=== PATIENT | male | born 1960 | race Caucasian/White ===

== ENCOUNTER 2020-10-28 10:22 | Inpatient (IN) | payer OTHER ==
[2020-10-28 10:33] VITALS: BMI 25.4
[2020-10-28] MEDS ORDERED: SODIUM CHLORIDE 0.9% 500 ML INFUS.BAG IV ONE (11:09)
[2020-10-28 11:51] LABS: CHLORIDE 105 mmol/L (98-107); POTASSIUM 4.2 mmol/L (3.5-5.1); SODIUM 137 mmol/L (136-145)
[2020-10-28 11:53] LABS: ALBUMIN 3.8 g/dl (3.4-5.0); ANION GAP 6 MMOL/L (8-16); BLOOD UREA NITROGEN 13.7 mg/dL (7-18); CALCIUM 9.5 mg/dL (8.5-10.1); CO2 26 mmol/L (21-32); GLUCOSE,RANDOM 110 mg/dL (74-106); MAGNESIUM 2.2 mg/dL (1.8-2.4)
[2020-10-28 11:56] LABS: PHOSPHOROUS 2.2 mg/dL (2.5-4.9); SGOT/AST 28 U/L (15-37); SGPT/ALT 32 U/L (13-61)
[2020-10-28 11:57] LABS: CREATININE 0.8 mg/dL (0.55-1.3)
[2020-10-28 11:58] LABS: TOT PROT 7.3 g/dl (6.4-8.2)
[2020-10-28 11:59] LABS: ALK PHOS 79 U/L (45-117)
[2020-10-28 12:02] LABS: BASO % 2.8 % (0-2.0); EOS % 2.2 % (0-4.5); HEMATOCRIT 43.8 % (35.4-49); HEMOGLOBIN 15.4 GM/dL (11.7-16.9); MCH 31.1 pg (25.7-33.7); MCHC 35.2 g/dl (32.0-35.9); MEAN CELL VOLUME 88.3 fl (80-96); MEAN PLT VOLUME 8.4 fl (7.5-11.1); MONO % 7.9 % (3.8-10.2); NEUT % 68.1 % (42.8-82.8); PLATELET COUNT 234 K/MM3 (134-434); RBC 4.95 M/mm3 (4.00-5.60); RDW 13.6 % (11.9-15.9); WHITE BLOOD COUNT 5.4 K/mm3 (4.0-10.0)
[2020-10-28 18:52] LABS: CHOLESTEROL 247 mg/dL (50-200); TRIGLYCERIDES 199 mg/dL (0-150)
[2020-10-28 18:53] LABS: LDL CHOLESTEROL (ONLY SJRH) 158 mg/dL (5-100)
[2020-10-28 18:55] LABS: HDL CHOLESTEROL 57 mg/dL (40-60)
[2020-10-28 18:56] LABS: N-TERMINAL BNP 40.5 pg/ml (5-125)
[2020-10-28] MEDS ORDERED: ATORVASTATIN CA 20 MG TABLET (FP) PO ONE (21:30)
[2020-10-28] MEDS: HEPARIN NA (PORCINE) 5,000 UNITS/ML 1ML VIAL SQ SCH (21:39)
[2020-10-29 07:52] LABS: BASO % 0.5 % (0-2.0); EOS % 3.4 % (0-4.5); HEMATOCRIT 42.9 % (35.4-49); HEMOGLOBIN 14.7 GM/dL (11.7-16.9); LYMPH % 26.9 % (8-40); MCH 30.8 pg (25.7-33.7); MCHC 34.2 g/dl (32.0-35.9); MEAN PLT VOLUME 8.4 fl (7.5-11.1); MONO % 9.9 % (3.8-10.2); NEUT % 59.3 % (42.8-82.8); PLATELET COUNT 226 K/MM3 (134-434); RBC 4.76 M/mm3 (4.00-5.60); RDW 13.1 % (11.9-15.9); WHITE BLOOD COUNT 5.7 K/mm3 (4.0-10.0)
[2020-10-29 08:04] LABS: CHLORIDE 106 mmol/L (98-107); POTASSIUM 3.9 mmol/L (3.5-5.1); SODIUM 139 mmol/L (136-145)
[2020-10-29 08:15] LABS: ALBUMIN 3.5 g/dl (3.4-5.0); ALK PHOS 74 U/L (45-117); CALCIUM 9.2 mg/dL (8.5-10.1)
[2020-10-29 08:16] LABS: ANION GAP 5 MMOL/L (8-16); BLOOD UREA NITROGEN 15.8 mg/dL (7-18); CO2 28 mmol/L (21-32); GLUCOSE,RANDOM 90 mg/dL (74-106); HDL CHOLESTEROL 49 mg/dL (40-60); SGPT/ALT 26 U/L (13-61)
[2020-10-29 08:17] LABS: LDL CHOLESTEROL (ONLY SJRH) 153 mg/dL (5-100); SGOT/AST 16 U/L (15-37); TOT PROT 6.6 g/dl (6.4-8.2)
[2020-10-29 08:18] LABS: MAGNESIUM 2.4 mg/dL (1.8-2.4)
[2020-10-29 08:19] LABS: CHOLESTEROL 232 mg/dL (50-200); CREATININE 0.9 mg/dL (0.55-1.3); TRIGLYCERIDES 156 mg/dL (0-150)
[2020-10-29] MEDS: HEPARIN NA (PORCINE) 5,000 UNITS/ML 1ML VIAL SQ SCH ×2 (10:06→21:30)
[2020-10-29] MEDS ORDERED: amLODIPine BESYLATE 5 MG TABLET (FP) PO ONE (15:01)
[2020-10-29] MEDS ORDERED: ATORVASTATIN CA 10 MG TABLET (FP) PO SCH (22:00)
[2020-10-29] MEDS ORDERED: ROSUVASTATIN CA 5 MG TABLET (FP) PO SCH (22:00)
[2020-10-30 07:56] LABS: HEMATOCRIT 44.6 % (35.4-49); HEMOGLOBIN 15.5 GM/dL (11.7-16.9); MCH 30.8 pg (25.7-33.7); MCHC 34.8 g/dl (32.0-35.9); MEAN CELL VOLUME 88.6 fl (80-96); MEAN PLT VOLUME 8.2 fl (7.5-11.1); PLATELET COUNT 216 K/MM3 (134-434); RBC 5.03 M/mm3 (4.00-5.60); RDW 13.2 % (11.9-15.9); WHITE BLOOD COUNT 4.5 K/mm3 (4.0-10.0)
[2020-10-30 08:15] LABS: POTASSIUM 4.1 mmol/L (3.5-5.1)
[2020-10-30 08:25] LABS: ALBUMIN 3.4 g/dl (3.4-5.0)
[2020-10-30 08:26] LABS: BLOOD UREA NITROGEN 16.2 mg/dL (7-18)
[2020-10-30 08:27] LABS: BILIRUBIN,TOTAL 0.9 mg/dL (0.2-1); TOT PROT 6.7 g/dl (6.4-8.2)
[2020-10-30 08:28] LABS: CREATININE 0.9 mg/dL (0.55-1.3)
[2020-10-30] MEDS ORDERED: ATORVASTATIN CA 20 MG TABLET (FP) PO SCH (08:36)
[2020-10-30 09:14] VITALS: TEMP 98.1
[2020-10-30] MEDS ORDERED: ESCITALOPRAM OXALATE 10 MG TABLET PO SCH (10:00)
[2020-10-30] MEDS: HEPARIN NA (PORCINE) 5,000 UNITS/ML 1ML VIAL SQ SCH (12:43)
[2020-10-30 17:06] VITALS: BP 131/73; PULSE 78
== END 2020-10-30 17:07 | disposition home or self-care (01) | DRG 756 ==
LOC: JER 10:22 → JERBED 13:35 → OBSVTOIN 14:22 → J4W 17:22
PROVIDERS: ADMIT Family Medicine; ATTEND Family Medicine
DX: F41.8 Other specified anxiety disorders (principal); I10 Essential (primary) hypertension; E78.5 Hyperlipidemia, unspecified; R00.2 Palpitations; R94.31 Abnormal electrocardiogram [ECG] [EKG]; R06.02 Shortness of breath
CPT/HCPCS: 36415; 71045-TC-FY; 78452-TC; 80053; 80061; 82550; 82553; 83036; 83721; 83735; 83880; 84100; 84443; 84484; 85025; 85027; 93005; 93010; 93017; 99285-25; A9502; C9803; G0378; J1644; U0003

== ENCOUNTER 2021-10-31 10:47 | Emergency (ER) | payer OTHER ==
[2021-10-31 10:57] VITALS: BMI 25.7
[2021-10-31 12:31] LABS: EOS % 2.2 % (0-4.5); HEMATOCRIT 43.6 % (35.4-49); HEMOGLOBIN 15.1 GM/dL (11.7-16.9); LYMPH % 32.4 % (8-40); MCH 30.6 pg (25.7-33.7); MCHC 34.8 g/dl (32.0-35.9); MEAN CELL VOLUME 88.1 fl (80-96); MEAN PLT VOLUME 7.3 fl (7.5-11.1); MONO % 9.6 % (3.8-10.2); NEUT % 54.8 % (42.8-82.8); PLATELET COUNT 224 10^3/uL (134-434); RBC 4.95 M/mm3 (4.00-5.60); RDW 13.1 % (11.9-15.9); WHITE BLOOD COUNT 4.3 K/mm3 (4.0-10.0)
[2021-10-31 12:55] LABS: CHLORIDE 105 mmol/L (98-107); SODIUM 140 mmol/L (136-145)
[2021-10-31 12:57] LABS: CALCIUM 9.3 mg/dL (8.5-10.1)
[2021-10-31 12:58] LABS: ALBUMIN 3.8 g/dl (3.4-5.0); ANION GAP 6 MMOL/L (8-16); BLOOD UREA NITROGEN 14.2 mg/dL (7-18); CO2 29 mmol/L (21-32); GLUCOSE,RANDOM 105 mg/dL (74-106)
[2021-10-31 13:01] LABS: CREATININE 0.9 mg/dL (0.55-1.3); SGOT/AST 26 U/L (15-37); SGPT/ALT 36 U/L (13-61)
[2021-10-31 13:02] LABS: BILIRUBIN,TOTAL 0.8 mg/dL (0.2-1)
[2021-10-31 13:04] LABS: ALK PHOS 83 U/L (45-117)
[2021-10-31 14:12] LABS: PH,URINE 7.5 (5.0-8.0); URINE APPEARANCE CLEAR; URINE BILIRUBIN NEGATIVE (NEGATIVE); URINE COLOR YELLOW; URINE GLUCOSE (UA) NEGATIVE (NEGATIVE); URINE KETONE NEGATIVE (NEGATIVE); URINE LEUK ESTERASE NEGATIVE (NEGATIVE); URINE NITRITE NEGATIVE (NEGATIVE); URINE PROTEIN NEGATIVE (NEGATIVE); URINE UROBILINOGEN 0.2 mg/dL (0.2-1.0)
[2021-10-31 14:15] LABS: HCG,QUALITATIVE URINE Negative
[2021-10-31 14:22] LABS: COCAINE, UR NEGATIVE (NEGATIVE); METHADONE, UR NEGATIVE (NEGATIVE); OPIATES, URI NEGATIVE (NEGATIVE); PHENCYCLIDINE,URINE NEGATIVE (NEGATIVE); URINE BARBITURATES NEGATIVE (NEGATIVE); URINE BENZODIAZEPINES NEGATIVE (NEGATIVE)
[2021-10-31 14:23] LABS: URINE AMPHETAMINES NEGATIVE (NEGATIVE)
[2021-10-31 16:51] VITALS: BP 133/68; PULSE 76; TEMP 97.8
== END 2021-10-31 17:26 | disposition home or self-care (01) ==
LOC: JER 10:47
DX: R45.851 Suicidal ideations (principal); F32.A Depression, unspecified
CPT/HCPCS: 36415; 80053; 80307; 81003; 84703; 85025; 93005; 93010; 99284-25

== ENCOUNTER 2022-01-27 12:02 | Observation (INO) | payer OTHER ==
[2022-01-27 12:12] VITALS: BMI 25.0
[2022-01-27] MEDS ORDERED: ACETAMINOPHEN 500 MG TABLET (FP) PO ONE (12:33)
[2022-01-27] MEDS ORDERED: MAG HYDROX/AL HYDROX/SIMETH 30 ML UNIT-DOSE CUP PO ONE (12:33)
[2022-01-27] MEDS ORDERED: FAMOTIDINE 20 MG/50 ML IVPB 20 MG/50 ML MG IVPB ONE ×2 (12:33→12:41)
[2022-01-27] MEDS ORDERED: MAG HYDROX/AL HYDROX/SIMETH 30 ML UNIT-DOSE CUP ONE (12:41)
[2022-01-27] MEDS ORDERED: ACETAMINOPHEN 325 MG TABLET (FP) ONE (12:41)
[2022-01-27 13:22] LABS: BASO % 0.9 % (0-2.0); EOS % 2.9 % (0-4.5); HEMATOCRIT 41.6 % (35.4-49); HEMOGLOBIN 14.6 GM/dL (11.7-16.9); LYMPH % 34.9 % (8-40); MCH 30.4 pg (25.7-33.7); MEAN CELL VOLUME 86.7 fl (80-96); MEAN PLT VOLUME 7.8 fl (7.5-11.1); MONO % 9.6 % (3.8-10.2); NEUT % 51.7 % (42.8-82.8); PLATELET COUNT 279 10^3/uL (134-434); RDW 12.6 % (11.9-15.9)
[2022-01-27 13:23] LABS: URINE APPEARANCE CLEAR; URINE BILIRUBIN NEGATIVE (NEGATIVE); URINE COLOR YELLOW; URINE GLUCOSE (UA) NEGATIVE (NEGATIVE); URINE KETONE NEGATIVE (NEGATIVE); URINE LEUK ESTERASE NEGATIVE (NEGATIVE); URINE NITRITE NEGATIVE (NEGATIVE); URINE PROTEIN NEGATIVE (NEGATIVE); URINE UROBILINOGEN 0.2 mg/dL (0.2-1.0)
[2022-01-27 13:33] LABS: CALCIUM 9.9 mg/dL (8.5-10.1)
[2022-01-27 13:34] LABS: ALBUMIN 3.8 g/dl (3.4-5.0)
[2022-01-27 13:37] LABS: CREATININE 0.9 mg/dL (0.55-1.3)
[2022-01-27 13:38] LABS: BILIRUBIN,TOTAL 0.8 mg/dL (0.2-1)
[2022-01-27 13:39] LABS: TOT PROT 6.9 g/dl (6.4-8.2)
[2022-01-27 14:01] LABS: ACTIVATED PTT 29.7 SECONDS (25.2-36.5)
[2022-01-27 14:38] LABS: PROTHROMBIN TIME (PATIENT) 11.5 SEC (9.7-13.0)
[2022-01-27] MEDS ORDERED: LORazepam 2 MG/ML SDV VIAL IVPUSH ONE (14:44)
[2022-01-27 16:48] LABS: OPIATES, URI NEGATIVE (NEGATIVE); PHENCYCLIDINE,URINE NEGATIVE (NEGATIVE)
[2022-01-27 16:49] LABS: METHADONE, UR NEGATIVE (NEGATIVE); URINE BENZODIAZEPINES NEGATIVE (NEGATIVE)
[2022-01-27 16:53] LABS: COCAINE, UR NEGATIVE (NEGATIVE); URINE AMPHETAMINES NEGATIVE (NEGATIVE); URINE BARBITURATES NEGATIVE (NEGATIVE)
[2022-01-28 08:42] LABS: BASO % 0.9 % (0-2.0); EOS % 4.5 % (0-4.5); HEMATOCRIT 42.7 % (35.4-49); HEMOGLOBIN 14.8 GM/dL (11.7-16.9); LYMPH % 35.9 % (8-40); MCH 30.6 pg (25.7-33.7); MCHC 34.6 g/dl (32.0-35.9); MEAN CELL VOLUME 88.3 fl (80-96); MEAN PLT VOLUME 7.4 fl (7.5-11.1); MONO % 9.9 % (3.8-10.2); NEUT % 48.8 % (42.8-82.8); PLATELET COUNT 249 10^3/uL (134-434); RBC 4.84 M/mm3 (4.00-5.60); RDW 12.9 % (11.9-15.9); WHITE BLOOD COUNT 4.1 K/mm3 (4.0-10.0)
[2022-01-28 08:49] LABS: ALBUMIN 3.8 g/dl (3.4-5.0); CALCIUM 9.4 mg/dL (8.5-10.1); MAGNESIUM 2.5 mg/dL (1.8-2.4)
[2022-01-28 08:52] LABS: CREATININE 0.9 mg/dL (0.55-1.3)
[2022-01-28] MEDS: HEPARIN NA (PORCINE) 5,000 UNITS/ML 1ML VIAL SQ SCH (19:36)
[2022-01-28] MEDS ORDERED: HEPARIN NA (PORCINE) 5,000 UNITS/ML 1ML VIAL ONE (19:36)
[2022-01-28] MEDS ORDERED: ROSUVASTATIN CA 10 MG TABLET PO SCH (22:00)
[2022-01-29] MEDS: HEPARIN NA (PORCINE) 5,000 UNITS/ML 1ML VIAL SQ SCH ×3 (00:57→21:54)
[2022-01-29] MEDS ORDERED: REGADENOSON 0.4 MG/5 ML PRE-FILLED SYRINGE IVPUSH ONE ×2 (09:59→10:15)
[2022-01-29] MEDS: ROSUVASTATIN CA 20 MG TABLET PO SCH (21:54)
[2022-01-30] MEDS: HEPARIN NA (PORCINE) 5,000 UNITS/ML 1ML VIAL SQ SCH ×2 (10:30→21:27)
[2022-01-30] MEDS: ESCITALOPRAM OXALATE 10 MG TABLET PO SCH (10:30)
[2022-01-30] MEDS: ROSUVASTATIN CA 20 MG TABLET PO SCH (21:27)
[2022-01-31 08:32] VITALS: BP 126/71; PULSE 54; TEMP 98
[2022-01-31] MEDS: ESCITALOPRAM OXALATE 10 MG TABLET PO SCH (09:13)
[2022-01-31] MEDS: HEPARIN NA (PORCINE) 5,000 UNITS/ML 1ML VIAL SQ SCH (09:13)
== END 2022-01-31 13:14 | disposition home or self-care (01) ==
LOC: JER 12:02 → JERBED 15:26 → INTOOBSV 15:26 → J4W 01-29 00:47
PROVIDERS: ADMIT Family Medicine; ATTEND Family Medicine
PROC: 3E033GC Introduction of Other Therapeutic Substance into Peripheral Vein, Percutaneous Approach (ICD-10-PCS; principal; 2022-01-27)
PROC: 3E023GC Introduction of Other Therapeutic Substance into Muscle, Percutaneous Approach (ICD-10-PCS; 2022-01-27)
DX: F41.8 Other specified anxiety disorders (principal); R00.2 Palpitations; R45.851 Suicidal ideations; I10 Essential (primary) hypertension; E78.5 Hyperlipidemia, unspecified; R06.02 Shortness of breath; R94.31 Abnormal electrocardiogram [ECG] [EKG]; R07.9 Chest pain, unspecified; R53.1 Weakness; R41.9 Unspecified symptoms and signs involving cognitive functions and awareness; R42 Dizziness and giddiness
CPT/HCPCS: 36415; 71046-TC-FY; 78452-TC; 80053; 80061; 80307; 81003; 83036; 83735; 84443; 84484; 85025; 85610; 85730; 87086; 93005; 93010; 93017; 93306-TC; 96365; 96372; 96375; 99285-25; A9502; C9803-CS; G0378; J1644; J2785; U0003; U0005